=== PATIENT | male | born 1970 | race Caucasian/White ===

== ENCOUNTER 2024-12-12 09:44 | Emergency (ER) | payer BC, SELFPAY ==
[2024-12-12 09:45] VITALS: BP 152/104
[2024-12-12 11:20] VITALS: BP 145/105
[2024-12-12] MEDS: TORADOL 15 MG IV ×2 (11:34→14:02)
[2024-12-12] MEDS: NSS 1000 IV (11:34)
[2024-12-12] MEDS: ZOFRAN 4 MG IV (11:34)
[2024-12-12 11:43] LABS: Hematocrit 39.8 % (39.0-52.0); Hemoglobin 14.5 g/dL (13.0-18.0); Mean Corp Hgb Conc. 36.4 g/dL (33.0-37.0); Mean Corpuscular Volume 84.5 fL (80.0-94.0); Nucleated Red Blood Cells % 0 % (-); Platelet Count 212 10^3/uL (130-400); Red Cell Dist. Width 12.4 % (11.5-14.5)
--- NOTE | 2024-12-12 11:54 | ED.GENMED ---
History of Present Illness
General
Chief Complaint: Abdominal Pain
Source: patient
Exam Limitations: none
Time Seen by Provider: 12/12/24 11:08
Nursing documentation reviewed up to this point in time: agreed with
History of Present Illness
History of Present Illness:
54-year-old male presenting to the emergency department today with concerns of left flank left lower quad abdominal pain over the past few hours associated nausea. Feels somewhat similar to previous kidney stones. Denies any fevers otherwise felt
well prior to the onset of symptoms.
Past History
Past History
ED Past Medical History: Asthma (allergy induced), GERD, Hypercholesterolemia, Psychiatric (Anxiety) and Other (Pulmonary embolism and DVT after cholecystectomy, Kidney stones, Cellulitis)
ED Past Surgical History: Cholecystectomy
Social History
Tobacco: Non-smoker
Alcohol: Occasional
Drug: None
Personal:
Living: alone
Employment: Employed
Family History
Family History: Other (Noncontributory)
Review of Systems
Review of Systems
Allergies reviewed?: Yes
All Other Systems: ROS reviewed and negative except as documented in HPI and ROS
Phy Exam
Physical Exam
Physical Exam:
GENERAL: Alert , in no apparent distress
EYE: pupils equal and reactive
NECK: Supple, no significant adenopathy.
ENT: o/p clr, mmm.
CARDIAC: Regular rate and rhythm .
LUNGS: Clear breath sounds bilaterally, no acute respiratory distress, no wheezes/rales/rhonchi
ABDOMEN: Soft, without focal tenderness, no r/g, no cvat
NEUROLOGICAL: Alert and oriented, no focal neuro deficits
SKIN: Warm and dry, skin intact.
MUSCULOSKELETAL: No edema, well perfused.
PSYCH: Normal and appropriate interaction.
Course
Orders/Labs/Results
Orders:
Orders
12/12/24 11:23
CT Abd/pel Without Iv Or Oral Urgent
Comment:
Reason For Exam: left flank pain/llq pain hx stones
0.9% Sodium Chloride 1000 ml [Nss] 1,000 ml IV BOLUS
Ketorolac [Toradol] 15 mg IV NOW STA
Ondansetron Injectable [Zofran] 4 mg IV NOW STA
12/12/24 11:25
Ketorolac [Toradol] 15 mg .ROUTE .STK-MED ONE
Ondansetron Injectable [Zofran] 4 mg .ROUTE .STK-MED ONE
12/12/24 11:33
Complete Blood Count/With Diff Urgent
Comprehensive Metabolic Panel Urgent
12/12/24 14:00
Ketorolac [Toradol] 15 mg .ROUTE .STK-MED ONE
12/12/24 14:01
Ketorolac [Toradol] 15 mg IV NOW STA
12/12/24 14:49
Urinalysis Reflex To Culture Urgent
Date Specimen was Collected: 12/12/24
Time Specimen was Collected: 12:07
Urine Microscopic Reflex Cult Urgent
Urine Culture Urgent
YANETH Source: U
Specimen Description:
Date Specimen was Collected: 12/12/24
Time Specimen was Collected: 12:07
12/12/24 15:03
Tamsulosin [Flomax] 0.4 mg PO NOW STA
Abnormal Lab Results
12/12/24 12/12/24
11:33 14:49
Absolute Lymphs (auto) 1.0 L 10^3/uL
(1.2-3.4)
Neutrophils % 79.0 H %
(42.2-75.2)
Lymphocytes % 14.3 L %
(20.5-51.1)
Chloride 108 H mmol/L
(98-107)
Glucose 103 H mg/dl
(70-99)
Ur Occult Blood Reflex 4+ A
(Negative)
Leukocyte Esterase Rfl 1+ A
(Negative)
Urine RBC 26-30 A /HPF
(0-2)
Urine Bacteria (Reflex) Moderate A
(Negative)
Urine Albumin (Reflex) 2+ A
(Neg - Trace)
12/12/24 11:33
12/12/24 11:33
Vital Signs
Initial and Last Documented VS:
Initial Vital Signs
Temp Pulse Resp BP Pulse Ox
98.2 F 93 16 152/104 98
12/12/24 09:45 12/12/24 09:45 12/12/24 09:45 12/12/24 09:45 12/12/24 09:45
Last Documented Vital Signs
Temp Pulse Resp BP Pulse Ox
98.2 F 94 16 126/85 98
12/12/24 09:45 12/12/24 14:53 12/12/24 14:53 12/12/24 14:50 12/12/24 14:50
MDM/Problems Addressed
MDM/Problems Addressed:
54-year-old male presenting to the emergency department today with concerns of left flank left lower quadrant abdominal pain abruptly starting few hours ago has been intermittent in severity associated nausea no vomiting. CT scan confirming 4 mm
stone to the mid ureter. No evidence of complications with normal renal function no white count and significant improved symptoms after Toradol. Plan for trial of passage close outpatient follow-up with urology. Return precautions given.
*Pulse Oximetry
SaO2: 97
Oxygen Mode of Delivery: Room air
Patient hypoxic: no (98)
*Critical Care Note
Total Time (30-74mins, 75-104mins- exclusive of procedures): Not Applicable
ED Attending Note
-
Portions of this chart may have been created with voice recognition software.� Occasional wrong word or��sound alike� substitutions may have occurred due to the inherent limitations of voice recognition software.
Discharge Plan
Departure
Patient Disposition: Home (Routine Discharge)
Date of Disposition: 12/12/24
Time of Disposition: 15:25
Patient with high blood pressure during this ER visit?: No
Condition: Good
Covid-19: Not Applicable
Discharge Problem:
Renal colic on left side
Instructions: Renal Colic (DC)
Prescriptions:
New
tamsulosin [Flomax] 0.4 mg capsule
0.4 mg PO HS Qty: 7 0RF
oxycodone 5 mg capsule
5 mg PO Q8H PRN (Reason: Pain) Qty: 7 0RF
ibuprofen 600 mg tablet
600 mg PO Q6H PRN (Reason: Pain) Qty: 14 0RF
ondansetron 4 mg tablet,disintegrating
4 mg PO Q6H PRN (Reason: nausea and vomiting) Qty: 7 0RF
No Action
clonazepam 0.5 MG tablet
0.5 mg PO Q8H PRN (Reason: anxiety)
sertraline 100 MG tablet
100 mg PO DAILY
doxycycline hyclate 100 MG capsule
100 mg PO Q12 Qty: 19 0RF
oxycodone-acetaminophen 5 MG/325 MG tablet
1 tab PO Q4HPRN PRN (Reason: Pain) Qty: 10 0RF
tamsulosin 0.4 MG capsule
0.4 mg PO DAILY Qty: 5 0RF
ondansetron 4 MG tablet,disintegrating
4 mg PO Q8HPRN PRN (Reason: Nausea/Vomiting) Qty: 5 0RF
ketorolac 10 MG tablet
10 mg PO Q6HPRN PRN (Reason: Pain) Qty: 12 0RF
ondansetron 4 MG tablet,disintegrating
4 mg PO Q8HPRN PRN (Reason: Nausea/Vomiting) Qty: 10 0RF
Referrals:
Orlando Burton MD [Family Provider, Family Practice]
Vinayak Soares MD [Active, Urology] - Follow up in 5-7 days
Activity Restrictions/Additional Instructions:
You came to the emergency department today and were found to have a kidney stone. Please drink plenty of fluids and take the prescribed medications and follow-up closely with urology. Return for any worsening, new or concerning symptoms.
Interventions
Interventions:
*Risk Screen - Suicide Last Done: 12/12/24 09:45
*General Assessment Last Done: 12/12/24 09:45
*Neglect/Abuse Screening Last Done: 12/12/24 09:49
*ED- Fall Risk Assessment Last Done: 12/12/24 11:21
*ED COVID-19 Vaccine History Last Done: 12/12/24 11:21
GQ-Wkuzot-Mlqxqblyww Assessment Last Done: 12/12/24 11:21
Discharge Date and Time
Print Language: ARGENTINE
[2024-12-12 12:00] VITALS: BP 139/96
[2024-12-12 12:04] LABS: ALT (SGPT) 31 U/L (0-50); AST (SGOT) 25 U/L (17-59); Albumin 4.2 g/dl (3.5-5.0); Alkaline Phosphatase 87 U/L (38-126); Blood Urea Nitrogen 15 mg/dl (9-20); Calcium 9.2 mg/dl (8.4-10.2); Carbon Dioxide 24 mmol/L (22-30); Chloride 108 mmol/L (98-107); Glucose 103 mg/dl (70-99); Potassium 4.1 mmol/L (3.5-5.1); Sodium 139 mmol/L (135-145); Total Protein 7.3 g/dl (6.3-8.2); eGFR > 60.00
[2024-12-12 14:50] VITALS: BP 126/85
[2024-12-12 15:05] LABS: Urine Character Clear (Clear)
[2024-12-12 15:20] LABS: Urine Red Blood Cell 26-30 /HPF (0-2); Urine Squamous Cell 0-2 /LPF (Few)
[2024-12-12] MEDS: FLOMAX 0.4 MG PO (15:41)
== END 2024-12-12 15:50 | disposition home or self-care (01) ==
LOC: EMR 09:44
PROVIDERS: Physician Assistant; EMERGENCY PHYSICIAN Student in an Organized Health Care Education/Training Program; FAMILY PHYSICIAN Family Medicine
DX: N13.2 Hydronephrosis with renal and ureteral calculous obstruction (principal); E78.00 Pure hypercholesterolemia, unspecified; J45.909 Unspecified asthma, uncomplicated; Z86.711 Personal history of pulmonary embolism; Z86.718 Personal history of other venous thrombosis and embolism; Z90.49 Acquired absence of other specified parts of digestive tract
CPT/HCPCS: 96374; 96375; 96376; 99284; 74176; 80053; 81003; 81015; 85025; 87086

== ENCOUNTER → 2024-12-28 14:13 | Outpatient (REF) | payer BC, SELFPAY | LOC: HWRAD 14:13 | PROVIDERS: ATTENDING PHYSICIAN Specialist; FAMILY PHYSICIAN Family Medicine | DX: N20.0 Calculus of kidney (principal) | CPT/HCPCS: 74018 ==

== ENCOUNTER 2025-01-02 19:23 | Emergency (ER) | payer BC, SELFPAY ==
[2025-01-02 19:25] VITALS: BP 165/103
--- NOTE | 2025-01-02 21:07 | ED.GENMED ---
History of Present Illness
General
Chief Complaint: Abdominal Pain
Source: patient
Exam Limitations: none
Time Seen by Provider: 01/02/25 19:50
Nursing documentation reviewed up to this point in time: agreed with
History of Present Illness
History of Present Illness:
The patient is a pleasant 54-year-old man who was recently diagnosed with a 4 mm left mid ureteral stone on a CAT scan done 3 weeks ago. Patient underwent an abdominal x-ray a few days ago which showed that the stone was likely present low in the
left lower quadrant area. Patient reports that he is back in the ED tonight due to nausea and intermittent pain. He denies fevers, chills and vomiting.
Past History
Past History
ED Past Medical History: Asthma (allergy induced), GERD, Hypercholesterolemia, Psychiatric (Anxiety) and Other (Pulmonary embolism and DVT after cholecystectomy, Kidney stones, Cellulitis)
ED Past Surgical History: Cholecystectomy
Social History
Tobacco: Non-smoker
Alcohol: Occasional
Drug: None
Personal:
Living: alone
Employment: Employed
Family History
Family History: Other (Noncontributory)
Review of Systems
Review of Systems
Allergies reviewed?: Yes
Constitutional: Reports no symptoms
EENT: Reports no symptoms
Respiratory: Reports no symptoms
Cardiac: Reports no symptoms
ABD/GI: Reports nausea
: Reports flank pain
Musculoskeletal: Reports no symptoms
Skin: Reports no symptoms
Neurological: Reports no symptoms
Endocrine: Reports no symptoms
Hematologic/Lymphatic: Reports no symptoms
Psychiatric: Reports no symptoms
Phy Exam
Physical Exam
Physical Exam:
Physical Exam
General: no apparent distress, not acutely ill. Well appearing
Neck: supple. no meningeal signs. normal psoterior pharynx
Heart: s1/s2 regular rate and rhythm, no murmur. equal radial pulses.
Lungs: no acute respiratory distress. clear bilaterally
Abdomen: normal bowel sounds. not tender. no CVAT
Neuro: alert and oriented. no focal neurological deficits
Skin: no rash
Psychiatric: well kept. interactive and cooperative
Extremities: no edema. no calf tenderness. negative homans. good distal pulses
Course
Orders/Labs/Results
Orders:
Orders
01/02/25 20:57
0.9% Sodium Chloride 1000 ml [Nss] 1,000 ml IV BOLUS
01/02/25 20:58
Ondansetron Injectable [Zofran] 4 mg IV NOW STA
01/02/25 21:06
Complete Blood Count/With Diff Urgent
Comprehensive Metabolic Panel Urgent
Tamsulosin [Flomax] 0.4 mg PO NOW STA
01/02/25 21:16
Ketorolac [Toradol] 30 mg IV NOW STA
01/02/25 22:42
Urinalysis Reflex To Culture Urgent
Date Specimen was Collected: 01/02/25
Time Specimen was Collected: 22:38
Abnormal Lab Results
01/02/25
21:06
RBC 4.28 L 10^6/uL
(4.70-6.10)
Hct 36.4 L %
(39.0-52.0)
MCH 31.1 H pg
(27.0-31.0)
Lymphocytes % 19.7 L %
(20.5-51.1)
Glucose 111 H mg/dl
(70-99)
01/02/25 21:06
01/02/25 21:06
Vital Signs
Initial and Last Documented VS:
Initial Vital Signs
Temp Pulse Resp BP Pulse Ox
98.5 F 110 16 165/103 99
01/02/25 19:25 01/02/25 19:25 01/02/25 19:25 01/02/25 19:25 01/02/25 19:25
Last Documented Vital Signs
Temp Pulse Resp BP Pulse Ox
98.5 F 110 16 165/103 99
01/02/25 19:25 01/02/25 19:25 01/02/25 19:25 01/02/25 19:25 01/02/25 21:13
MDM/Problems Addressed
Differential Diagnosis Includes:
Ureteral colic, pyelonephritis, UTI
MDM/Problems Addressed:
Patient presents with subacute left flank pain and nausea
Chronic conditions affecting care:
Kidney stone
Acute Exacerbation and/or Progression of Chronic Illness:
Patient likely has acute exacerbation of pain and nausea from chronic kidney stone
*Pulse Oximetry
SaO2: 99
Oxygen Mode of Delivery: Room air
Patient hypoxic: no
*EKG
Interpreted by ED Provider?: NA
*Correctional Officer Interpretation
Rate: Correctional Officer- N/A
*Critical Care Note
Total Time (30-74mins, 75-104mins- exclusive of procedures): Not Applicable
Data Reviewed
Review of Other/Old Records Reveals: Radiology Studies (CAT scan reviewed from 12/12/2024 which shows 4 mm left mid ureteral stone)
Source: patient
Patient Management
Social determinants of health affecting care: Living situation and Strong social support
Discussion with other providers: Other (Patient evaluated at bedside by Dr. Strong. Recommended IV fluids, pain meds, Flomax and follow-up in the office)
Escalation/DeEscalation of care consider admission/obs:
Patient looks extremely well and comfortable. Recent x-ray shows that renal stone is moving down. There is no sign of UTI or renal failure.
ED Attending Note
-
Portions of this chart may have been created with voice recognition software.� Occasional wrong word or��sound alike� substitutions may have occurred due to the inherent limitations of voice recognition software.
Discharge Plan
Departure
Patient Disposition: Home (Routine Discharge)
Date of Disposition: 01/02/25
Time of Disposition: 23:03
Patient with high blood pressure during this ER visit?: Yes
Condition: Good
Covid-19: Not Applicable
Discharge Problem:
Renal colic on left side
Instructions: Kidney Stones (DC), Renal Colic (DC), BLOOD PRESSURE
Prescriptions:
New
tamsulosin [Flomax] 0.4 mg capsule
0.4 mg PO DAILY Qty: 7 0RF
ondansetron 4 mg tablet,disintegrating
4 mg PO Q8H PRN (Reason: nausea and vomiting) Qty: 14 0RF
oxycodone 5 mg tablet
5 mg PO TID PRN (Reason: Pain) Qty: 7 0RF
No Action
clonazepam 0.5 MG tablet
0.5 mg PO Q8H PRN (Reason: anxiety)
sertraline 100 MG tablet
100 mg PO DAILY
doxycycline hyclate 100 MG capsule
100 mg PO Q12 Qty: 19 0RF
oxycodone-acetaminophen 5 MG/325 MG tablet
1 tab PO Q4HPRN PRN (Reason: Pain) Qty: 10 0RF
tamsulosin 0.4 MG capsule
0.4 mg PO DAILY Qty: 5 0RF
ondansetron 4 MG tablet,disintegrating
4 mg PO Q8HPRN PRN (Reason: Nausea/Vomiting) Qty: 5 0RF
ketorolac 10 MG tablet
10 mg PO Q6HPRN PRN (Reason: Pain) Qty: 12 0RF
ondansetron 4 MG tablet,disintegrating
4 mg PO Q8HPRN PRN (Reason: Nausea/Vomiting) Qty: 10 0RF
tamsulosin [Flomax] 0.4 mg capsule
0.4 mg PO HS Qty: 7 0RF
oxycodone 5 mg capsule
5 mg PO Q8H PRN (Reason: Pain) Qty: 7 0RF
ibuprofen 600 mg tablet
600 mg PO Q6H PRN (Reason: Pain) Qty: 14 0RF
ondansetron 4 mg tablet,disintegrating
4 mg PO Q6H PRN (Reason: nausea and vomiting) Qty: 7 0RF
Referrals:
Timothy Strong MD [Active, Urology]
Referral Note: Call the office tomorrow to let them know about your pain or any other symptoms
Orlando Burton MD [Family Provider, Family Practice]
Activity Restrictions/Additional Instructions:
Take 600 mg of Advil/Motrin every 6-8 hours with food for pain. If pain becomes severe, please take 1 oxycodone every 4 hours as needed for severe pain.
Please take Flomax once a day every day
Return for vomiting, chills, or fever
Call Dr. Strong's office tomorrow to let him know how you are feeling
Interventions
Interventions:
*Risk Screen - Suicide Last Done: 01/02/25 19:26
*General Assessment Last Done: 01/02/25 22:00
*Neglect/Abuse Screening Last Done: 01/02/25 19:26
*ED- Fall Risk Assessment Last Done: 01/02/25 22:00
*ED COVID-19 Vaccine History Last Done: 01/02/25 22:00
*ED Influenza Vaccine History Last Done: 01/02/25 22:00
*Nursing Disposition Last Done: 01/02/25 23:15
YB-Vomztl-Baojazbgdk Assessment Last Done: 01/02/25 22:00
Discharge Date and Time
Discharge Date/Time: 01/02/25 23:23
Print Language: RUSSIAN
[2025-01-02] MEDS: ZOFRAN 4 MG IV (21:12)
[2025-01-02] MEDS: NSS 1000 IV (21:12)
[2025-01-02] MEDS: FLOMAX 0.4 MG PO (21:16)
[2025-01-02] MEDS: TORADOL 30 MG IV (21:19)
[2025-01-02 21:21] LABS: Hematocrit 36.4 % (39.0-52.0); Hemoglobin 13.3 g/dL (13.0-18.0); Mean Corp Hgb Conc. 36.5 g/dL (33.0-37.0); Mean Corpuscular Volume 85.0 fL (80.0-94.0); Nucleated Red Blood Cells % 0 % (-); Platelet Count 155 10^3/uL (130-400); Red Cell Dist. Width 12.7 % (11.5-14.5)
[2025-01-02 21:38] LABS: ALT (SGPT) 28 U/L (0-50); AST (SGOT) 23 U/L (17-59); Albumin 3.9 g/dl (3.5-5.0); Alkaline Phosphatase 77 U/L (38-126); Blood Urea Nitrogen 16 mg/dl (9-20); Calcium 8.5 mg/dl (8.4-10.2); Carbon Dioxide 28 mmol/L (22-30); Chloride 105 mmol/L (98-107); Glucose 111 mg/dl (70-99); Potassium 3.6 mmol/L (3.5-5.1); Sodium 138 mmol/L (135-145); Total Protein 6.6 g/dl (6.3-8.2); eGFR > 60.00
[2025-01-02 22:57] LABS: Urine Character Clear (Clear)
== END 2025-01-02 23:23 | disposition home or self-care (01) ==
LOC: EMR 19:23
PROVIDERS: EMERGENCY PHYSICIAN Emergency Medicine; FAMILY PHYSICIAN Family Medicine
DX: N20.2 Calculus of kidney with calculus of ureter (principal); R03.0 Elevated blood-pressure reading, without diagnosis of hypertension; E78.00 Pure hypercholesterolemia, unspecified; J45.909 Unspecified asthma, uncomplicated; K21.9 Gastro-esophageal reflux disease without esophagitis; F41.9 Anxiety disorder, unspecified; Z86.711 Personal history of pulmonary embolism; Z86.718 Personal history of other venous thrombosis and embolism
CPT/HCPCS: 99284; 96374; 96375; 96361; 80053; 81003; 85025

== ENCOUNTER → 2025-02-09 15:25 | Outpatient (REF) | payer BC, SELFPAY ==
[2025-02-09 17:50] LABS: Urine Character Clear (Clear)
[2025-02-09 18:25] LABS: Urine Squamous Cell 0-2 /LPF (Few)
== END ==
LOC: HWRAD 15:25
PROVIDERS: ATTENDING PHYSICIAN Specialist; FAMILY PHYSICIAN Family Medicine
DX: N20.0 Calculus of kidney (principal)
CPT/HCPCS: 74018; 81003; 81015; 87086

== ENCOUNTER 2025-03-04 20:39 | Emergency (ER) | payer BC, SELFPAY ==
[2025-03-04 20:42] VITALS: BP 136/94
--- NOTE | 2025-03-04 22:23 | ED.MUSCINJ ---
HPI-Injury
General
Chief Complaint: Fall
Source: patient
Exam Limitations: none
Time Seen by Provider: 03/04/25 22:02
History of Present Illness-Injury
Initial Injury comments:
54-year-old male presents complaining of left ankle pain starting today. He slipped on the ice and landed on his foot with his ankle underneath him. He notes pain to the anterior lateral aspect of the ankle. He has been able to bear weight with
discomfort. No prior injury to the ankle. No other injuries. No other complaints at this time
Past History
Past History
ED Past Medical History: Asthma (allergy induced), GERD, Hypercholesterolemia, Psychiatric (Anxiety) and Other (Pulmonary embolism and DVT after cholecystectomy, Kidney stones, Cellulitis)
ED Past Surgical History: Cholecystectomy
Social History
Tobacco: Non-smoker
Alcohol: Occasional
Drug: None
Personal:
Living: alone
Employment: Employed
Family History
Family History: Other (Noncontributory)
Phy Exam
Physical Exam
Physical Exam:
General: Well-appearing male no acute respiratory distress
Musculoskeletal exam: Left ankle swollen laterally tender inferior to the distal fibula and anterior to the distal fibula. The medial malleolus is nontender he is able to resist eversion and inversion. Ankle stable to a drawer test.
Vascular: 2+ DP pulse left foot.
Injury Course
Orders/Labs/Results
Orders:
Orders
03/04/25 21:20
Ankle, left 3 view CR [CR Ankle - Left Min 3 Views ] Urgent
Comment:
Reason For Exam: pain and swelling lateral ankle
03/04/25 22:22
Ortho Boot Left- Treatment ONCE
Short or tall?: Tall
MDM/Problems Addressed
Differential Diagnosis Includes:
Fall with left ankle pain. Consider sprain versus fracture versus dislocation
I have personally visualized x-rays of the left ankle which are negative for acute fracture. I suspect underlying sprain. Patient having difficulty ambulating. Will fit for orthopedic boot. Stable for discharge
*Pulse Oximetry
SaO2: 99
Oxygen Mode of Delivery: Room air
Patient hypoxic: no
*Critical Care Note
Total Time (30-74mins, 75-104mins- exclusive of procedures): Not Applicable
ED Attending Note
-
Portions of this chart may have been created with voice recognition software.� Occasional wrong word or��sound alike� substitutions may have occurred due to the inherent limitations of voice recognition software.
Discharge Plan
Departure
Patient Disposition: Home (Routine Discharge)
Date of Disposition: 03/04/25
Time of Disposition: 22:26
Patient with high blood pressure during this ER visit?: No
Discharge Problem:
Ankle sprain
Instructions: Muscle and Bone Pain (DC)
Prescriptions:
No Action
clonazepam 0.5 MG tablet
0.5 mg PO Q8H PRN (Reason: anxiety)
sertraline 100 MG tablet
100 mg PO DAILY
doxycycline hyclate 100 MG capsule
100 mg PO Q12 Qty: 19 0RF
oxycodone-acetaminophen 5 MG/325 MG tablet
1 tab PO Q4HPRN PRN (Reason: Pain) Qty: 10 0RF
tamsulosin 0.4 MG capsule
0.4 mg PO DAILY Qty: 5 0RF
ondansetron 4 MG tablet,disintegrating
4 mg PO Q8HPRN PRN (Reason: Nausea/Vomiting) Qty: 5 0RF
ketorolac 10 MG tablet
10 mg PO Q6HPRN PRN (Reason: Pain) Qty: 12 0RF
ondansetron 4 MG tablet,disintegrating
4 mg PO Q8HPRN PRN (Reason: Nausea/Vomiting) Qty: 10 0RF
tamsulosin [Flomax] 0.4 mg capsule
0.4 mg PO HS Qty: 7 0RF
oxycodone 5 mg capsule
5 mg PO Q8H PRN (Reason: Pain) Qty: 7 0RF
ibuprofen 600 mg tablet
600 mg PO Q6H PRN (Reason: Pain) Qty: 14 0RF
ondansetron 4 mg tablet,disintegrating
4 mg PO Q6H PRN (Reason: nausea and vomiting) Qty: 7 0RF
tamsulosin [Flomax] 0.4 mg capsule
0.4 mg PO DAILY Qty: 7 0RF
ondansetron 4 mg tablet,disintegrating
4 mg PO Q8H PRN (Reason: nausea and vomiting) Qty: 14 0RF
oxycodone 5 mg tablet
5 mg PO TID PRN (Reason: Pain) Qty: 7 0RF
Referrals:
Orlando Burton MD [Family Provider, Family Practice]
Activity Restrictions/Additional Instructions:
Use boot for support when ambulating. Elevate for swelling. Use ibuprofen or Tylenol for pain. Return here if worse otherwise follow-up with orthopedics if symptoms persist
Interventions
Interventions:
*Risk Screen - Suicide Last Done: 03/04/25 21:14
*General Assessment Last Done: 03/04/25 20:42
*Neglect/Abuse Screening Last Done: 03/04/25 21:14
*ED COVID-19 Vaccine History Last Done: 03/04/25 21:14
*ED Influenza Vaccine History Last Done: 03/04/25 21:51
[facility] Fall Risk Assessment Tool Last Done: 03/04/25 21:51
ED-Musculoskeletal Assessment Last Done: 03/04/25 21:14
ED- Neurological Assessment Last Done: 03/04/25 21:14
ED-Skin Assessment Last Done: 03/04/25 21:14
Discharge Date and Time
Print Language: GEORGIAN
== END 2025-03-04 22:43 | disposition home or self-care (01) ==
LOC: EMR 20:39
PROVIDERS: EMERGENCY PHYSICIAN Student in an Organized Health Care Education/Training Program; FAMILY PHYSICIAN Family Medicine
DX: S93.402A Sprain of unspecified ligament of left ankle, initial encounter (principal); W00.0XXA Fall on same level due to ice and snow, initial encounter; E78.00 Pure hypercholesterolemia, unspecified; J45.909 Unspecified asthma, uncomplicated; Z86.718 Personal history of other venous thrombosis and embolism
CPT/HCPCS: 99283; 73610